=== PATIENT | male | born 1980 | race Asian ===

== ENCOUNTER 2019-09-28 15:34 | Emergency (ER) | payer OTHER ==
[~2019-09-28] VITALS: Ht 182.9 cm; Wt 83.0 kg
[2019-09-28 15:38] VITALS: BP 137/86; Ht 182.9 cm; Wt 83.0 kg
== END 2019-09-28 16:20 | disposition home or self-care (01) ==
LOC: ED 15:34
DX: S09.8XXA Other specified injuries of head, initial encounter (principal); F17.210 Nicotine dependence, cigarettes, uncomplicated; Y04.8XXA Assault by other bodily force, initial encounter; Y93.89 Activity, other specified; Y92.89 Other specified places as the place of occurrence of the external cause; Y99.8 Other external cause status; Z71.6 Tobacco abuse counseling
CPT/HCPCS: 99406